=== PATIENT | female | born 1980 | race Caucasian/White ===

== ENCOUNTER 2020-07-09 18:16 | Emergency (ER) | payer SELFPAY ==
[~2020-07-09] VITALS: Ht 172.7 cm; Wt 100.3 kg
[2020-07-09 18:46] VITALS: BP 136/74
[2020-07-09] MEDS ORDERED: NEOSPORIN OINT. PKT 1 PACKET ONE (19:57)
== END 2020-07-09 20:22 ==
LOC: ED 20:16
DX: G89.11 Acute pain due to trauma (principal); L03.032 Cellulitis of left toe; Z72.9 Problem related to lifestyle, unspecified; F17.210 Nicotine dependence, cigarettes, uncomplicated; W18.30XA Fall on same level, unspecified, initial encounter; Y93.89 Activity, other specified; Y92.410 Unspecified street and highway as the place of occurrence of the external cause; Y99.8 Other external cause status
CPT/HCPCS: 99283; 99406